=== PATIENT | female | born 1975 ===

== ENCOUNTER 2019-06-09 17:04 | Observation (INO) ==
[2019-06-09] MEDS ORDERED: ACETAMINOPHEN 325 MG TABLET PO PRN (23:14)
[2019-06-09] MEDS ORDERED: diphenhydrAMINE CAP 25 MG CAPSULE PO PRN (23:14)
[2019-06-09] MEDS ORDERED: hydrALAZINE 20 MG/1 ML VIAL IV PRN (23:14)
[2019-06-09] MEDS ORDERED: NICOTINE 21 MG/24 HR PATCH TRANSDERM PRN (23:14)
[2019-06-09] MEDS ORDERED: ONDANSETRON 4 MG/2 ML VIAL IV PRN (23:14)
[2019-06-09] MEDS ORDERED: ALUMINUM/MAGNES/SIMETH MAX STR 30 ML UDCUP PO PRN (23:14)
[2019-06-10] MEDS ORDERED: INFLUENZA VIRUS VACCINE 0.5 ML SYRINGE IM ONE (00:11)
[2019-06-10 01:03] LABS: Basophils % 0.2 % (0.0-0.8); Eosinophils # 0.1 10*3/uL (0.0-0.87); Hematocrit 37.8 VOL% (35.7-47.0); Hemoglobin 12.1 GM/DL (12.0-16.0); Immature Granulocytes % 0.5 %; Immature Granulocytes Absolute 0.07 #; Lymphocytes # 3.3 10*3/uL (1.4-4.0); Lymphocytes % 23.8 % (21.3-54.2); Mean Corpuscular Volume 100.3 FL (87-102); Mean Platelet Volume 8.9 FL (9.6-12.0); Monocytes % 5.2 % (1.7-12.7); Neutrophils % 69.3 % (38.7-73.9); Platelet Count 295 T/CUMM (130-400); Red Blood Count 3.77 MC/CUMM (3.8-5.5); Red Cell Distribution Width 12.7 % (9.3-17.3); White Blood Count 13.8 T/CUMM (4-12)
[2019-06-10 01:23] LABS: Alanine Aminotransferase 35 U/L (13-56); Albumin 3.1 G/DL (3.4-5.0); Alkaline Phosphatase 80 U/L (45-117); Aspartate Amino Transferase 26 U/L (0-37); Bilirubin,Total < 0.39 MG/DL (0.2-1.0); Blood Urea Nitrogen 15 MG/DL (7-18); Calcium 8.3 MG/DL (8.5-10.1); Estimated Glom Filtration Rate 79 ML/MIN; Glucose 115 MG/DL (74-106); Osmolality,Calculated 271.1 MOS/KG (273-304)
[2019-06-10 01:24] LABS: Risk Ratio 2.52; VLDL CHOLESTEROL 29.6 MG/DL
[2019-06-10] MEDS: guaiFENesin/DM ER 600-30 MG TABLET PO PRN ×2 (02:59→13:18)
[2019-06-10] MEDS: POTASSIUM CHLORIDE 20 MEQ TABLET PO PRN ×2 (10:51→13:16)
[2019-06-10 16:08] VITALS: BP 112/51
== END 2019-06-10 18:39 | disposition home or self-care (01) ==
LOC: SUATTDRO 21:17 → N.2W 21:17 → INTOOBSV 21:17
PROVIDERS: ADMIT Internal Medicine; ATTEND Internal Medicine